=== PATIENT | female | born 1995 | race Caucasian/White ===

== ENCOUNTER 2016-11-21 11:36 | Emergency (ER) | payer SELFPAY ==
[~2016-11-21] VITALS: Ht 165.1 cm; Wt 56.7 kg
[2016-11-21] MEDS ORDERED: NKM (11:43)
[2016-11-21] MEDS ORDERED: RISPERDAL0.25 MG ORAL (11:45)
[2016-11-21] MEDS ORDERED: KLONOPIN0.5 MG ORAL (11:45)
[2016-11-21] MEDS ORDERED: Phenazopyridine 200mg tab ORAL ONE (12:00)
[2016-11-21 12:18] LABS: APPEARANCE,URINE SLIGHTLY CLOUDY; KETONES,URINE NEGATIVE (NEGATIVE); LEUKOCYTE ESTERASE ,URINE 2+ (NEGATIVE); NITRITE,URINE POSITIVE (NEGATIVE); PH,URINE 5 (4.5-8.0); PROTEIN,URINE 3+ (NEGATIVE); UROBILINOGEN,URINE 12 MG/DL (0.0-1.0)
[2016-11-21 12:24] LABS: BACTERIA,URINE FEW /HPF; ICTOTEST POSITIVE; SQUAMOUS EPITHELIAL CELL,UR FEW /LPF (NONE/OCC); WBC,URINE 60-80 /HPF (0 - 2)
[2016-11-21] MEDS ORDERED: NITROFURANTOIN100 M2 ORAL (13:15)
[2016-11-21] MEDS ORDERED: PHENAZOPYRIDIN200 MG ORAL (13:15)
[2016-11-21 13:25] VITALS: BP 99/66
--- NOTE | 2016-11-21 20:16 | Emergency Room Report ---
History of Present Illness General Chief Complaint: Female Urogenital Problems Source: Patient Present Illness HPI 2 days of dysuria, low abd and back pain. H/O UTIs in past. Took Azo today. Still with pain. No chills, no d/c. States not . No URI sy. Allergies: Coded Allergies: VANCOMYCIN (Verified Allergy, Unknown, 11/21/16) Patient History Past Medical History: see triage record Social History: Denies: smoking Last Menstrual Period: 11/07/16 Reviewed Nursing Documentation: PMH: Agreed, PSxH: Agreed Nursing Documentation-PMH Past Medical History: No History, Except For History Of Psychiatric Problem: Yes - ANXIETY Hx Cerebrovascular Accident: Yes - appendectomy,cholecystectomy Review of Systems Constitutional: Reports: see HPI ENT: Reports: see HPI Respiratory: Reports: see HPI Gastrointestinal: Denies: melena, nausea, vomiting Genitourinary: Reports: see HPI Skin: Denies: rash Physical Exam Vital Signs Date Time Temp Pulse Resp B/P Pulse Ox O2 Delivery O2 Flow Rate FiO2 11/21/16 11:40 98.1 89 20 108/70 99 Room Air Sp02 EP Interpretation: reviewed, normal General Appearance: well appearing, no apparent distress Head: normocephalic, atraumatic Eyes: bilateral eye PERRL, bilateral eye normal inspection ENT: hearing grossly normal, normal voice, moist mucus membranes Neck: full range of motion, supple Respiratory: no respiratory distress, speaking full sentences Genitourinary: no CVA tenderness Musculoskeletal: back normal, gait/station normal, normal range of motion, no calf tenderness Neurologic: alert - grossly normal, normal gait Psychiatric: mood/affect normal Skin: no rash Medical Decision Making Diagnostic Impression: Primary Impression: UTI (urinary tract infection) Qualified Codes: N30.00 - Acute cystitis without hematuria ER Course Patient with dysuria and back pain. Ddx: pyelo, UTI, virus. she believes = UTI. UA ordered. Treated with pyridium and tylenol. UA with pyuria. Antibiotics begun. Improved with treatment. Stable for outpatient observation and treatment. Laboratory Tests Test 11/21/16 11:50 Urine Color [place] Urine Appearance Slightly cloudy Urine pH 5 (4.5-8.0) Urine Specific [place] 1.010 (1.005-1.035) Urine Protein 3+ (NEGATIVE) H Urine Glucose (UA) Negative (NEGATIVE) Urine Ketones Negative (NEGATIVE) Urine Occult Blood 3+ (NEGATIVE) H Urine Nitrite Positive (NEGATIVE) H Urine Bilirubin 3+ (NEGATIVE) H Urine Ictotest Positive Urine Urobilinogen 12 MG/DL (0.0-1.0) H Urine Leukocyte Esterase 2+ (NEGATIVE) H Urine RBC 2-4 /HPF (0 - 2) H Urine WBC 60-80 /HPF (0 - 2) H Urine Squamous Epithelial Cells Few /LPF (NONE/OCC) Urine Bacteria Few /HPF (NONE) Urine HCG, Qualitative Negative Last Vital Signs Date Time Temp Pulse Resp B/P Pulse Ox O2 Delivery O2 Flow Rate FiO2 11/21/16 13:25 97.3 83 16 99/66 98 Room Air Status: improved Disposition: HOME, SELF-CARE Condition: Improved Scripts Phenazopyridine Hcl* (PYRIDIUM*) 200 Mg Tablet 200 MG ORAL THREE TIMES A DAY, #14 TAB 0 Refills Prov: [place] Walter M.D. 11/21/16 Nitrofurantoin Monohyd/M-Cryst* (MACROBID 100 MG*) 100 Mg Capsule 100 MG ORAL EVERY 12 HOURS, #14 CAP Prov: [place] Walter M.D. 11/21/16 Referrals: NOT CHOSEN IPA/,REFERRING (PCP) Patient Instructions: Urinary Tract Infection Additional Instructions: Follow up with your MD. Suoth Walter M.D. Nov 21, 2016 20:16
== END 2016-11-21 13:30 | disposition home or self-care (01) ==
LOC: EMR 13:29
DX: N39.0 Urinary tract infection, site not specified (principal); R10.30 Lower abdominal pain, unspecified; M54.9 Dorsalgia, unspecified; Z88.1 Allergy status to other antibiotic agents
CPT/HCPCS: 81003; 81025; 87086; 99282